=== PATIENT | male | born 1980 | race Caucasian/White ===

== ENCOUNTER 2017-01-31 00:13 | Emergency (ER) | payer OTHER ==
[~2017-01-31 00:13] MED LIST: ADVAIR 2501 DISK W/D IH; ADVAIR 25028 BLISTE1 INH; ADVAIR HFA 2301 PUFF INH; AMITRIPTYLINE PO; AUGMENTIN 875-1 EAC2 PO; BACTRIM DS TAB1 EAC2 PO; BENADRYL ALLERG25 M1 PO; CATAPRES0.1 MG PO; CEPHALEXIN500 M1 PO; CEPHALEXIN500 M2 PO; DELTASONE20 MG PO; DEPO-TESTO100 MG/1 M IM; DILAUDID2 M1 PO; DOXYCYCLINE HY100 M3 PO; FLAGYL500 M1 PO; GUAIFENESIN AC473 ML PO; HYDROCODON-ACE1 EA16 PO; LASIX40 MG PO; LEVAQUIN PO; LEVAQUIN750 M1 PO; LISINOPRIL20 M1 PO; LISINOPRIL20 MG PO; MIRAPEX1 M1 PO; MIRAPEX1 MG PO; NORCO 5-325 TA1 EACH PO; NORVASC10 M1 PO; OMEPRAZOLE20 M3 PO; PERCOCET 5-3251 EACH PO; PHENTERMINE HCL15 M1 PO; PRILOSEC OTC20 MG PO; PROAIR HFA8.5 GM INH; TESTOSTERO100 MG/1 M; TESTOSTERONE; TOPAMAX50 M3 PO; TYLENOL325 M2 PO; TYLENOL325 MG PO; XARELTO15 M1 PO; ZOFRAN ODT4 MG/UDTAB PO; ZOFRAN4 M2 PO; [UNRECOGNIZED DRUG - OTHER] RIGHT EAR
[2017-06-02] MEDS ORDERED: TESTOSTERO200 MG/1 M (21:51)
== END 2017-01-31 02:17 ==
LOC: EDMED 00:13
DX: F10.129 Alcohol abuse with intoxication, unspecified (principal); Y90.6 Blood alcohol level of 120-199 mg/100 ml; J45.909 Unspecified asthma, uncomplicated; K21.9 Gastro-esophageal reflux disease without esophagitis; Z79.51 Long term (current) use of inhaled steroids; Z79.899 Other long term (current) drug therapy
CPT/HCPCS: G0480; J3411; J7030

== ENCOUNTER 2017-02-02 09:11 | Emergency (ER) | payer OTHER ==
[2017-02-02 08:14] LABS: BASO % 0.2 % (0-2); EOS % 4.9 % (0-7); EOSINOPHIL ABSOLUTE COUNT 0.3 tho/cmm (0.0-0.7); HCT-HEMATOCRIT 43.2 % (36.0-53.5); HGB-HEMOGLOBIN 14.6 gm/dl (13.5-17.0); LYMPH % 35.3 % (20-45); LYMPH ABSOLUTE COUNT 1.8 tho/cmm (0.8-4.5); MCHC MEAN CORPUSCULAR HGB CONC 33.8 % (32.0-36.0); MCV (MEAN CELL VOLUME) 85.7 fl (82.0-96.0); MEAN PLATELET VOLUME 11.5 cmc (9.4-12.4); MONO % 13.8 % (0-12); MONOCYTE ABSOLUTE COUNT 0.7 tho/cmm (0.0-1.2); NEUTROPHIL ABSOLUTE COUNT 2.3 tho/cmm (1.6-8.0); NEUTROPHIL-AUTOMATED 2.3 tho/cmm (1.6-8.0); NEUTROPHILS % 45.8 % (40-80); PLATELET COUNT 219 tho/cmm (150-450); RED BLOOD COUNT 5.04 mil/cmm (4.40-5.70); RED CELL DISTRIBUTION WIDTH 13.7 % (12.4-16.4); WHITE BLOOD COUNT 5.1 tho/cmm (4.0-10.0)
[2017-02-02 08:48] LABS: ANION GAP 12 mmol/L (0-20); BLOOD UREA NITROGEN 18 mg/dl (6-24); CALCIUM 8.5 mg/dl (8.5-10.5); CARBON DIOXIDE-VENOUS 26 mmol/L (22-32); CHLORIDE 108 mmol/l (96-110); CREATININE 1.11 mg/dl (0.60-1.30); GLUCOSE 97 mg/dL (70-110); SODIUM 142 mmol/L (135-145); eGFR VALUE FOR BLACK >90 mL/Min
[2017-02-02 08:58] LABS: POTASSIUM 3.9 mmol/L (3.7-5.1)
[2017-06-02] MEDS ORDERED: TESTOSTERO200 MG/1 M (21:51)
== END 2017-02-02 12:29 ==
LOC: EDMED 09:11
PROVIDERS: Emergency Medicine
DX: R07.89 Other chest pain (principal); I10 Essential (primary) hypertension; K21.9 Gastro-esophageal reflux disease without esophagitis; G47.33 Obstructive sleep apnea (adult) (pediatric); Z98.890 Other specified postprocedural states; Z79.899 Other long term (current) drug therapy
CPT/HCPCS: C9113; J2405; J7030; Q9967

== ENCOUNTER 2017-03-22 23:09 | Emergency (ER) | payer OTHER ==
[2017-03-23 00:08] LABS: BASO % 0.1 % (0-2); EOS % 3.4 % (0-7); EOSINOPHIL ABSOLUTE COUNT 0.3 tho/cmm (0.0-0.7); HCT-HEMATOCRIT 42.7 % (36.0-53.5); HGB-HEMOGLOBIN 14.3 gm/dl (13.5-17.0); IMMATURE GRANULOCYTES ABSOLUTE 0.05 tho/cmm (0-0.03); IMMATURE GRANULOCYTES PERCENT 0.7 % (0-0.3); LYMPH % 24.7 % (20-45); LYMPH ABSOLUTE COUNT 1.8 tho/cmm (0.8-4.5); MCH (MEAN CORPUSCULAR HGB) 28.5 pg (28.0-32.0); MCHC MEAN CORPUSCULAR HGB CONC 33.5 % (32.0-36.0); MCV (MEAN CELL VOLUME) 85.1 fl (82.0-96.0); MEAN PLATELET VOLUME 11.2 cmc (9.4-12.4); MONOCYTE ABSOLUTE COUNT 0.8 tho/cmm (0.0-1.2); NEUTROPHIL ABSOLUTE COUNT 4.4 tho/cmm (1.6-8.0); NEUTROPHIL-AUTOMATED 4.4 tho/cmm (1.6-8.0); NEUTROPHILS % 60.1 % (40-80); PLATELET COUNT 243 tho/cmm (150-450); RED BLOOD COUNT 5.02 mil/cmm (4.40-5.70); WHITE BLOOD COUNT 7.4 tho/cmm (4.0-10.0)
[2017-03-23 00:21] LABS: BLOOD UREA NITROGEN 19 mg/dl (6-24); CALCIUM 8.9 mg/dl (8.5-10.5); CARBON DIOXIDE-VENOUS 29 mmol/L (22-32); CHLORIDE 105 mmol/l (96-110); CREATININE 1.02 mg/dl (0.60-1.30); GLUCOSE 101 mg/dL (70-110); SODIUM 141 mmol/L (135-145); eGFR VALUE FOR BLACK >90 mL/Min
[2017-03-23 00:22] LABS: ANION GAP 11 mmol/L (0-20)
[2017-03-23] MEDS ORDERED: PREDNISONE20 M1 PO (07:29)
[2017-03-23] MEDS ORDERED: AMOXICILLIN500 M2 PO (07:29)
[2017-06-02] MEDS ORDERED: TESTOSTERO200 MG/1 M (21:51)
== END 2017-03-23 02:31 ==
LOC: EDMED 23:09
PROVIDERS: Emergency Medicine
DX: R07.89 Other chest pain (principal); Z86.718 Personal history of other venous thrombosis and embolism; Z79.899 Other long term (current) drug therapy
CPT/HCPCS: J1170; J2405; J7030; Q9967

== ENCOUNTER 2017-03-23 07:07 | Emergency (ER) | payer OTHER ==
[2017-03-23] MEDS ORDERED: PREDNISONE20 M1 PO (07:29)
[2017-03-23] MEDS ORDERED: AMOXICILLIN500 M2 PO (07:29)
[2017-06-02] MEDS ORDERED: TESTOSTERO200 MG/1 M (21:51)
== END 2017-03-23 07:39 ==
LOC: EDMED 07:07
DX: J02.9 Acute pharyngitis, unspecified (principal); I10 Essential (primary) hypertension; G47.33 Obstructive sleep apnea (adult) (pediatric); E78.5 Hyperlipidemia, unspecified; Z87.891 Personal history of nicotine dependence; Z79.899 Other long term (current) drug therapy

== ENCOUNTER 2017-04-11 15:40 | Emergency (ER) | payer OTHER ==
[~2017-04-11 15:40] MED LIST changes: +AMOXICILLIN500 M2 PO; +PREDNISONE20 M1 PO
[2017-04-11 17:05] LABS: BASO % 0.4 % (0-2); EOS % 5.9 % (0-7); EOSINOPHIL ABSOLUTE COUNT 0.3 tho/cmm (0.0-0.7); HCT-HEMATOCRIT 42.2 % (36.0-53.5); HGB-HEMOGLOBIN 14.2 gm/dl (13.5-17.0); IMMATURE GRANULOCYTES ABSOLUTE 0.02 tho/cmm (0-0.03); IMMATURE GRANULOCYTES PERCENT 0.4 % (0-0.3); LYMPH % 36.8 % (20-45); LYMPH ABSOLUTE COUNT 1.8 tho/cmm (0.8-4.5); MCH (MEAN CORPUSCULAR HGB) 28.9 pg (28.0-32.0); MCHC MEAN CORPUSCULAR HGB CONC 33.6 % (32.0-36.0); MCV (MEAN CELL VOLUME) 85.8 fl (82.0-96.0); MEAN PLATELET VOLUME 11.6 cmc (9.4-12.4); MONO % 8.2 % (0-12); MONOCYTE ABSOLUTE COUNT 0.4 tho/cmm (0.0-1.2); NEUTROPHIL ABSOLUTE COUNT 2.3 tho/cmm (1.6-8.0); NEUTROPHIL-AUTOMATED 2.3 tho/cmm (1.6-8.0); NEUTROPHILS % 48.3 % (40-80); PLATELET COUNT 220 tho/cmm (150-450); RED BLOOD COUNT 4.92 mil/cmm (4.40-5.70); RED CELL DISTRIBUTION WIDTH 13.3 % (12.4-16.4); WHITE BLOOD COUNT 4.8 tho/cmm (4.0-10.0)
[2017-04-11 17:14] LABS: ANION GAP 12 mmol/L (0-20); BLOOD UREA NITROGEN 19 mg/dl (6-24); CALCIUM 8.6 mg/dl (8.5-10.5); CARBON DIOXIDE-VENOUS 27 mmol/L (22-32); CHLORIDE 111 mmol/l (96-110); CREATININE 1.01 mg/dl (0.60-1.30); GLUCOSE 116 mg/dL (70-110); SODIUM 146 mmol/L (135-145); eGFR VALUE FOR BLACK >90 mL/Min
[2017-04-11] MEDS ORDERED: NORCO 5-325 TA1 EACH PO (17:26)
[2017-06-02] MEDS ORDERED: TESTOSTERO200 MG/1 M (21:51)
== END 2017-04-11 17:34 ==
LOC: EDMED 15:40
PROVIDERS: Physician Assistant
DX: R51 Headache (principal); Z88.1 Allergy status to other antibiotic agents; Z88.5 Allergy status to narcotic agent; Z91.011 Allergy to milk products
CPT/HCPCS: J1885